=== PATIENT | male | born 1985 | race American Indian/Alaskan Native ===

== ENCOUNTER 2018-06-14 02:03 | Emergency (ER) | payer SELFPAY ==
[2018-06-14 03:33] LABS: Basophils # (Auto) 0.1 K/mm3 (0.0-0.1); Basophils % (Auto) 1.6 % (0.0-1.8); Eosinophils # (Auto) 0.1 K/mm3 (0.0-0.4); Eosinophils % (Auto) 1.3 % (0.0-4.3); Hematocrit 43.8 % (35.5-45.6); Hemoglobin 14.9 gm/dl (11.8-15.2); Lymphocytes # (Auto) 2.1 K/mm3 (1.2-5.4); Mean Corpuscular HGB Conc 34 % (32-34); Mean Corpuscular Hemoglobin 37 pg (28-32); Mean Corpuscular Volume 108 fl (84-94); Monocytes # (Auto) 0.6 K/mm3 (0.0-0.8); Platelet Count 159 K/mm3 (140-440); Red Blood Count 4.06 M/mm3 (3.65-5.03)
[2018-06-14 03:50] LABS: Alanine Aminotransferase 56 units/L (7-56); Albumin 4.4 g/dL (3.9-5); BUN/Creatinine Ratio 8; Blood Urea Nitrogen 5 mg/dL (9-20); Calcium 8.7 mg/dL (8.4-10.2); Hemolysis Index 12
--- NOTE | 2018-06-14 04:10 | Cat Scan Report ---
FINAL REPORT EXAM: CT HEAD/BRAIN WO CON HISTORY: headache TECHNIQUE: CT imaging acquired through the head without intravenous contrast. Transaxial reformations are provided. PRIORS: None. FINDINGS: The ventricles, cisterns and sulci are normal. No intraparenchymal or extra-axial mass, hemorrhage, or mass effect. Gorman and white-matter differentiation is normal. Normal spherical shape of the globes. Paranasal sinuses and mastoid air cells are clear. No skull or facial fracture visualized. IMPRESSION: No acute intracranial abnormality. Consider MRI for worsening/persistent symptoms.
--- NOTE | 2018-06-14 04:57 | Emergency Department Report ---
ED Headache HPI - General Chief Complaint: Headache Stated Complaint: HEADACHE Time Seen by Provider: 06/14/18 04:53 Source: patient - History of Present Illness Initial Comments: Patient is 32 years old male with no significant past medical history except for a fall in [place] when he hit his head. The patient states that since then he's been having some headache. Patient denied any focal weakness. He stated that he has been having some numbness in his leg but this is even before the fall. He added that his uncle and other members of his family have the same symptoms. Patient denied any nausea or vomiting. No neck pain or stiffness. Allergies/Adverse Reactions: Allergies No Known Allergies Allergy (Unverified 05/21/13 15:51) Home Medications: Ambulatory Orders No Known Home Medications [No Reported Home Medications] 05/21/13 ED Review of Systems ROS: Stated complaint: HEADACHE Other details as noted in HPI Comment: All other systems reviewed and negative Constitutional: no symptoms reported. denies: chills, fever ENT: denies: throat pain Respiratory: denies: cough Cardiovascular: denies: chest pain, palpitations Gastrointestinal: denies: abdominal pain, nausea Skin: denies: lesions Neurological: headache, numbness. denies: weakness, paresthesias, confusion, abnormal gait ED Past Medical Hx - Past Medical History Hx Asthma: Yes - Surgical History Past Surgical History?: No - Social History Smoking Status: Current Every Day Smoker Substance Use Type: None - Medications Home Medications: Home Medications Medication Instructions Recorded Confirmed Last Taken Type No Known Home Medications [No 05/21/13 05/21/13 Unknown History Reported Home Medications] ED Physical Exam - General Limitations: No Limitations ED Course Vital Signs 06/14/18 03:11 Temperature 98.5 F Pulse Rate 102 H Respiratory 18 Rate Blood Pressure 126/84 O2 Sat by Pulse 97 Oximetry ED Medical Decision Making - Lab Data Result diagrams: 06/14/18 03:18 06/14/18 03:18 - Radiology Data Referring Physician: ED DOC Patient Name: LAMBERTO LUEVANO Date of : 1985 Sex: Male Report Date: 2018-06-14 Report Status: Finalized Findings [facility] [address] [place] [address] Cat Scan Report Signed Patient: LAMBERTO LUEVANO MR#: [id number] : 1985 Acct:[id number] Age/Sex: 32 / M ADM Date: 06/14/18 Loc: ED Attending Dr: Ordering Physician: SHARON WANG MD Date of Service: 06/14/18 Procedure(s): CT head/brain wo con Accession Number(s): [id number] cc: SHARON WANG MD FINAL REPORT EXAM: CT HEAD/BRAIN WO CON HISTORY: headache TECHNIQUE: CT imaging acquired through the head without intravenous contrast. Transaxial reformations are provided. PRIORS: None. FINDINGS: The ventricles, cisterns and sulci are normal. No intraparenchymal or extra-axial mass, hemorrhage, or mass effect. Gorman and white-matter differentiation is normal. Normal spherical shape of the globes. Paranasal sinuses and mastoid air cells are clear. No skull or facial fracture visualized. IMPRESSION: No acute intracranial abnormality. Consider MRI for worsening/persistent symptoms. Transcribed By: MB Dictated By: NBA STEVE MD Electronically Authenticated By: NBA STEVE MD Signed Date/Time: 06/14/18407 DD/ 7 TD/TT: 06/14/18407 - Medical Decision Making Patient is 32 years old male with no significant past medical history except for a fall in [place] when he hit his head. The patient states that since then he's been having some headache. Patient denied any focal weakness. He stated that he has been having some numbness in his leg but this is even before the fall. He added that his uncle and other members of his family have the same symptoms. Patient denied any nausea or vomiting. No neck pain or stiffness. Patient was syncopal or laboratory evidence of meningitis. ct brain is negative for acute finding. patient labs are negative for acute finding also. i advised patient to follow up with his primary care physician in the next 2-3 days. Critical care attestation.: If time is entered above; I have spent that time in minutes in the direct care of this critically ill patient, excluding procedure time. ED Disposition Clinical Impression: Headache, Peripheral neuropathy Disposition: DC-01 TO HOME OR SELFCARE Is pt being admited?: No Condition: Stable Instructions: Acute Headache (ED), Peripheral Neuropathy (ED) Referrals: PRIMARY CARE, [Primary Care Provider] - 3-5 Days
[2018-06-14 05:12] VITALS: BP 137/58
== END 2018-06-14 05:10 | disposition home or self-care (01) ==
LOC: ED 02:03
DX: G62.9 Polyneuropathy, unspecified (principal); J45.909 Unspecified asthma, uncomplicated; F17.200 Nicotine dependence, unspecified, uncomplicated
CPT/HCPCS: 36415; 70450; 80053; 85025; 99284

== ENCOUNTER 2018-11-26 03:40 | Emergency (ER) | payer OTHER ==
[2018-11-26 04:33] LABS: Basophils % (Auto) 0.5 % (0.0-1.8); Eosinophils # (Auto) 0.1 K/mm3 (0.0-0.4); Eosinophils % (Auto) 0.7 % (0.0-4.3); Hematocrit 44.8 % (35.5-45.6); Hemoglobin 15.7 gm/dl (11.8-15.2); Lymphocytes % (Auto) 47.8 % (13.4-35.0); Mean Corpuscular HGB Conc 35 % (32-34); Mean Corpuscular Volume 102 fl (84-94); Monocytes # (Auto) 0.6 K/mm3 (0.0-0.8); Monocytes % (Auto) 7.3 % (0.0-7.3); Platelet Count 277 K/mm3 (140-440); Red Blood Count 4.38 M/mm3 (3.65-5.03); Red Cell Distribution Width 16.6 % (13.2-15.2)
[2018-11-26] MEDS ORDERED: KEPPRA 1,000 MG/NS 0.75% 100ML 1,000 MG/100 ML BAG IV ONE (04:43)
[2018-11-26 04:52] LABS: BUN/Creatinine Ratio 11; Blood Urea Nitrogen 8 mg/dL (9-20); Calcium 8.7 mg/dL (8.4-10.2); Hemolysis Index 16
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
--- NOTE | 2018-11-26 05:12 | Cat Scan Report ---
PROCEDURE: CT HEAD/BRAIN WO CON TECHNIQUE: CT imaging is obtained through the brain without contrast HISTORY: seizure COMPARISONS: 06/14/2018 FINDINGS: The ventricles, cisterns and sulci are within normal limits. No intra parenchymal or extra-axial mas s, hemorrhage, or mass effect. Gorman and white-matter differentiation is within normal limits. Normal spherical shape of the globes. Paranasal sinuses and mastoid air cells are clear. No skull o r facial fracture visualized. IMPRESSION: No acute intracranial abnormality. Consider follow-up MRI as warranted. This document is electronically signed by Joon Doan MD., November 26 2018 05:08:53 AM ET
[2018-11-26 06:12] VITALS: BP 109/74
== END 2018-11-26 06:10 | disposition home or self-care (01) ==
LOC: ED 03:40
DX: G40.909 Epilepsy, unspecified, not intractable, without status epilepticus (principal); S50.311A Abrasion of right elbow, initial encounter; S60.811A Abrasion of right wrist, initial encounter; S60.512A Abrasion of left hand, initial encounter; S10.91XA Abrasion of unspecified part of neck, initial encounter; J45.909 Unspecified asthma, uncomplicated; F17.200 Nicotine dependence, unspecified, uncomplicated; W10.8XXA Fall (on) (from) other stairs and steps, initial encounter; Y93.89 Activity, other specified; Y92.89 Other specified places as the place of occurrence of the external cause; Y99.8 Other external cause status
CPT/HCPCS: 36415; 70450; 80048; 85025; 96365; 99284; J1953; 96366

== ENCOUNTER 2019-03-03 20:54 | Inpatient (IN) | payer OTHER ==
[2019-03-03 22:54] LABS: Basophils # (Auto) 0.1 K/mm3 (0.0-0.1); Basophils % (Auto) 0.6 % (0.0-1.8); Eosinophils % (Auto) 0.2 % (0.0-4.3); Hematocrit 47.1 % (35.5-45.6); Lymphocytes # (Auto) 1.1 K/mm3 (1.2-5.4); Lymphocytes % (Auto) 10.2 % (13.4-35.0); Mean Corpuscular HGB Conc 34 % (32-34); Mean Corpuscular Volume 102 fl (84-94); Monocytes # (Auto) 1.1 K/mm3 (0.0-0.8); Monocytes % (Auto) 9.6 % (0.0-7.3); Platelet Count 217 K/mm3 (140-440); Red Blood Count 4.61 M/mm3 (3.65-5.03); Red Cell Distribution Width 13.8 % (13.2-15.2)
--- NOTE | 2019-03-03 22:55 | XRay Report ---
PROCEDURE: XR CHEST 1V AP TECHNIQUE: Chest radiograph single view. HISTORY: Chest Pain COMPARISONS: None . FINDINGS: There is no evidence of infiltrate, pneumothorax or pleural fluid collection. The cardiomediastinal silhouette is normal in appearance. The bony structures are notable for mild dextrocurvature of the thoracic spine. IMPRESSION: 1. No evidence of an acute pulmonary process. This document is electronically signed by Mayra Higuera MD., March 03 2019 10:53:43 PM ET
[2019-03-03 23:09] LABS: BUN/Creatinine Ratio 7; Blood Urea Nitrogen 5 mg/dL (9-20); Calcium 9.8 mg/dL (8.4-10.2); Hemolysis Index 9
[2019-03-03] MEDS ORDERED: SUBLIMAZE IV ONE (23:13)
[2019-03-03] MEDS ORDERED: ZOFRAN IV ONE (23:13)
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
[2019-03-03] MEDS ORDERED: NACL 0.9% 1000 ML 1,000 ML IV ONE (23:31)
[2019-03-04 00:17] LABS: Bacteria,Urine 1+ /HPF (Negative); Bilirubin,Urine NEG (Negative); Blood,Urine SM (Negative); Color,Urine Amber (Yellow); Mucus,Urine 3+ /HPF
--- NOTE | 2019-03-04 00:51 | Cat Scan Report ---
PROCEDURE: CT ANGIO CHEST TECHNIQUE: Computerized tomographic angiography of the chest was performed after the IV injection of iodinated nonionic contrast including image processing. The image data was postprocessed using 2-di mensional multiplanar reformatted (MPR) and 3-dimensional (MIP and/or volume rendered) techniques. Au tomated exposure control, adjustment of mA and/or kV according to patient size, or iterative reconstr uction dose optimization techniques were utilized. CT DOSE LENGTH PRODUCT: 1316 mGycm HISTORY: chest pain, tachycardia COMPARISONS: None . FINDINGS: Heart and pericardium: Normal. Thoracic aorta: Normal. Pulmonary vasculature: There is no evidence of pulmonary arterial emboli. Lymph nodes: No enlarged thoracic lymph nodes. Lungs: Normal. Pleural space: No effusion, thickening, or pneumothorax. Musculoskeletal structures: No significant abnormality. Upper abdominal structures: No significant abnormality. IMPRESSION: Normal Examination . This document is electronically signed by Alondra Stallings DO., March 04 2019 12:49:52 AM ET
--- NOTE | 2019-03-04 00:54 | Cat Scan Report ---
PROCEDURE: CT ABDOMEN PELVIS W CON TECHNIQUE: Computerized axial tomography of the abdomen and pelvis was performed after the administr ation of IV iodinated nonionic contrast. HISTORY: left-sided abdominal pain COMPARISONS: None . FINDINGS: Visualized lower thorax: No significant abnormality. Liver: Normal size and attenuation. Spleen: Normal size and attenuation. Gallbladder and biliary system: Normal. Pancreas: Normal. Adrenals: Normal. Kidneys: Normal. GI tract: The stomach is normal. The small bowel has a normal appearance. No evidence of obstruction . Cecum is normal. The appendix is not clearly visualized. Colon is normal.. Lymph nodes and mesentery: Normal. Vasculature: Normal.. Bladder: Normal. Reproductive organs: Normal. Peritoneum: No free fluid. Musculoskeletal structures: No significant abnormality. Other: None. IMPRESSION: There is no evidence of intestinal or urinary tract obstruction. No ileus or enteritis.. This document is electronically signed by Alondra Stallings DO., March 04 2019 12:52:23 AM ET
[2019-03-04] MEDS ORDERED: SODIUM CHLORIDE FLUSH SYRINGE 10 ML IV PRN (02:06)
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
[2019-03-04 02:42] LABS: Amphetamine Screen,Urine PRESUMPTIVE NEGATIVE; Benzodiazepines Screen,Urine PRESUMPTIVE NEGATIVE; Cannabinoid Screen,Urine PRESUMPTIVE NEGATIVE; Cocaine Screen,Urine PRESUMPTIVE NEGATIVE; Methadone Screen,Urine PRESUMPTIVE NEGATIVE; Opiate Screen,Urine PRESUMPTIVE NEGATIVE
[2019-03-04] MEDS ORDERED: PROVENTIL IH PRN (02:59)
[2019-03-04] MEDS: NACL 0.9% 1000 ML 1,000 ML IV SCH ×2 (03:28→16:48)
[2019-03-04 05:01] LABS: Chol/HDL Ratio 2.81 %
--- NOTE | 2019-03-04 07:56 | Event Note ---
Date: 03/04/19 Pt seen and evaluated. Admitted today. will continue with present management plan
[2019-03-04 08:56] LABS: Basophils % (Auto) 0.5 % (0.0-1.8); Eosinophils # (Auto) 0.1 K/mm3 (0.0-0.4); Eosinophils % (Auto) 0.9 % (0.0-4.3); Hematocrit 44.3 % (35.5-45.6); Hemoglobin 15.3 gm/dl (11.8-15.2); Lymphocytes # (Auto) 1.3 K/mm3 (1.2-5.4); Lymphocytes % (Auto) 15.8 % (13.4-35.0); Mean Corpuscular HGB Conc 34 % (32-34); Mean Corpuscular Volume 101 fl (84-94); Monocytes # (Auto) 1.1 K/mm3 (0.0-0.8); Monocytes % (Auto) 13.4 % (0.0-7.3); Platelet Count 181 K/mm3 (140-440); Red Blood Count 4.39 M/mm3 (3.65-5.03); Red Cell Distribution Width 13.8 % (13.2-15.2)
[2019-03-04 09:14] LABS: BUN/Creatinine Ratio 5; Blood Urea Nitrogen 3 mg/dL (9-20); Calcium 8.7 mg/dL (8.4-10.2); Hemolysis Index 9
[2019-03-04] MEDS: KEPPRA 500 MG in D5W 100 ML IV SCH (09:39)
[2019-03-04] MEDS: NITROSTAT SL PRN (10:15)
[2019-03-04] MEDS: MORPHINE IV PRN ×2 (11:53→19:29)
[2019-03-04] MEDS: ZOFRAN IV PRN ×2 (11:53→19:30)
[2019-03-04] MEDS: HEPARIN SUB-Q SCH ×2 (16:47→22:04)
[2019-03-04] MEDS: ROCEPHIN/NS 1 GM/50 ML 1 GM/50 ML BAG IV SCH (16:49)
[2019-03-04] MEDS: SODIUM CHLORIDE FLUSH SYRINGE 10 ML IV SCH ×2 (16:49→22:05)
[2019-03-04] MEDS: TYLENOL PO PRN (22:03)
[2019-03-05] MEDS: NACL 0.9% 1000 ML 1,000 ML IV SCH ×3 (03:17→22:50)
[2019-03-05] MEDS: MORPHINE IV PRN ×3 (04:57→20:29)
[2019-03-05] MEDS: KEPPRA 500 MG in D5W 100 ML IV SCH ×3 (05:01→22:50)
[2019-03-05] MEDS ORDERED: LEXISCAN IV ONE (07:33)
[2019-03-05 07:48] LABS: Basophils % (Auto) 0.4 % (0.0-1.8); Eosinophils # (Auto) 0.1 K/mm3 (0.0-0.4); Eosinophils % (Auto) 1.3 % (0.0-4.3); Hematocrit 40.4 % (35.5-45.6); Hemoglobin 13.9 gm/dl (11.8-15.2); Lymphocytes # (Auto) 1.1 K/mm3 (1.2-5.4); Lymphocytes % (Auto) 16.2 % (13.4-35.0); Mean Corpuscular HGB Conc 34 % (32-34); Mean Corpuscular Volume 102 fl (84-94); Monocytes # (Auto) 0.7 K/mm3 (0.0-0.8); Monocytes % (Auto) 10.6 % (0.0-7.3); Platelet Count 169 K/mm3 (140-440); Red Blood Count 3.97 M/mm3 (3.65-5.03); Red Cell Distribution Width 13.4 % (13.2-15.2)
[2019-03-05 07:55] LABS: BUN/Creatinine Ratio 5; Blood Urea Nitrogen 3 mg/dL (9-20); Calcium 8.2 mg/dL (8.4-10.2); Hemolysis Index 6
--- NOTE | 2019-03-05 08:05 | Progress Note ---
Assessment and Plan 33-year-old -[place] male with ongoing smoker with history of seizure disorder and asthma who presents to [facility] ED with complaints of left-sided chest pain radiating to the left side of neck and mid epigastric/left upper quadrant abdominal pain for the past 2-3 days. CTA negative for PE. CT abdomen did not show any evidence of intestinal or urinary tract obstruction; no ileus or enteritis noted. Lipase elevated at 259. Leukocytosis of 11.1, urine WBC elevated at 13.0, urine was zhang and slightly Cloudy. Will admit to telemetry for further evaluation. Acute pancreatitis UTI Acute chest pain - likely muscular skeletal Leukocytosis Increased lipase History of seizures History of asthma Tobacco abuse Plan: Nothing by mouth, IV hydration IV antibiotics Hydrate with IVF NS @ 100ml/hr IV Keppra 500 mg twice a day Start Rocephin 1g q24hrs Monitor WBC Monitor lipase Stress test (thallium) pending Albuterol when necessary Counseled on smoking cessation done. Pt refused nicotine patch DVT PPX on Heparin Subjective Date of service: 03/05/19 Principal diagnosis: acute appendicitis, UTI, history of seizure Interval history: We have no abdominal pain. No nausea no vomiting. No seizure activities. Objective - Exam Narrative Exam: Constitutional: Well-nourished well-developed. In no distress Head: Normocephalic atraumatic Eyes: Pupils are equal round and reactive to light Nose: No enlarged turbinates, no septal deviation. Mouth: Moist mucous membranes. Neck: Supple no thyromegaly. No bruit. No JVD Heart: Regular rate and rhythm, S1-S2 normal. No rubs murmurs or gallop Lungs: Clear to auscultation bilaterally. no rales or rhonchi Abdomen: Soft, nontender. Bowel sound are present. Extremities: No edema, no cyanosis, no clubbing. Neuro: Alert oriented Oriented x3. No focal sensory or motor deficit. Skin: No rashes or hyperpigmented spots Musculoskeletal system: No joint pain or swelling Hematological: No petechia or subcutanous hemorrhages. Immunological: No multiple septic spots on the skin Lymphatic: No generalized lymphadenopathy Psychiatry: Euthymic. Calm. - Constitutional Vitals: Vital Signs - 12hr 03/04/19 03/04/19 03/04/19 21:30 22:00 22:03 Temperature Pulse Rate 81 Respiratory 20 20 Rate Blood Pressure O2 Sat by Pulse Oximetry 03/04/19 03/04/19 03/05/19 23:03 23:26 04:19 Temperature 98.6 F 98.8 F Pulse Rate 82 81 Respiratory 20 17 18 Rate Blood Pressure 118/69 124/83 O2 Sat by Pulse 98 99 Oximetry 03/05/19 04:57 Temperature Pulse Rate Respiratory 22 Rate Blood Pressure O2 Sat by Pulse Oximetry - Labs CBC & Chem 7: 03/05/19 07:15 03/05/19 07:15 Labs: Abnormal lab results 03/04/19 03/04/19 03/05/19 Range/Units 08:28 08:28 07:15 Hgb 15.3 H (11.8-15.2) gm/dl MCV 101 H 102 H (84-94) fl MCH 35 H 35 H (28-32) pg [place] % (Auto) 13.4 H 10.6 H (0.0-7.3) % Lymph # 1.1 L (1.2-5.4) K/mm3 [place] # 1.1 H (0.0-0.8) K/mm3 Seg Neutrophils % 71.5 H (40.0-70.0) % Potassium (3.6-5.0) mmol/L BUN 3 L (9-20) mg/dL Creatinine 0.6 L (0.8-1.5) mg/dL Calcium (8.4-10.2) mg/dL 03/05/19 Range/Units 07:15 Hgb (11.8-15.2) gm/dl MCV (84-94) fl MCH (28-32) pg [place] % (Auto) (0.0-7.3) % Lymph # (1.2-5.4) K/mm3 [place] # (0.0-0.8) K/mm3 Seg Neutrophils % (40.0-70.0) % Potassium 3.4 L (3.6-5.0) mmol/L BUN 3 L (9-20) mg/dL Creatinine 0.6 L (0.8-1.5) mg/dL Calcium 8.2 L (8.4-10.2) mg/dL
[2019-03-05] MEDS: SODIUM CHLORIDE FLUSH SYRINGE 10 ML IV SCH ×2 (12:46→22:55)
[2019-03-05] MEDS: HEPARIN SUB-Q SCH ×2 (12:52→22:50)
[2019-03-05] MEDS: ROCEPHIN/NS 1 GM/50 ML 1 GM/50 ML BAG IV SCH (12:53)
[2019-03-05] MEDS: KCL 10MEQ/100ML 10 MEQ/100 ML BAG IV SCH ×2 (20:20→22:51)
[2019-03-05] MEDS: NEURONTIN PO SCH (22:50)
--- NOTE | 2019-03-05 23:36 | Treadmill Report ---
STRESS TEST REPORT REASON FOR TEST: Chest pain. The patient exercised for 10 minutes of a Ender protocol, reaching stage 4 and achieving a level 11 mets. Peak heart rate was 197 beats per minute. Peak blood pressure was 147 systolic. There was no angina. Test was stopped for fatigue. Baseline ECG was sinus rhythm. With exercise, there were no ST changes of ischemia. No significant dysrhythmias were noted. CONCLUSION: 1. Very good exercise capacity. 2. No chest pain. 3. No ST changes of ischemia. 4. No significant dysrhythmias. 5. Normal exercise ECG test. JOB# [id number] CA/NTS
[2019-03-06] MEDS: NITROSTAT SL PRN (09:11)
[2019-03-06] MEDS: ROCEPHIN/NS 1 GM/50 ML 1 GM/50 ML BAG IV SCH (09:11)
[2019-03-06] MEDS: NEURONTIN PO SCH ×2 (09:15→21:47)
[2019-03-06] MEDS: SODIUM CHLORIDE FLUSH SYRINGE 10 ML IV SCH ×2 (09:16→21:48)
[2019-03-06] MEDS: HEPARIN SUB-Q SCH ×2 (09:16→21:47)
[2019-03-06] MEDS: KEPPRA 500 MG in D5W 100 ML IV SCH ×3 (10:45→22:18)
[2019-03-06] MEDS: TYLENOL PO PRN (18:14)
--- NOTE | 2019-03-06 19:30 | Progress Note ---
Assessment and Plan Assessment and plan: --Acute pancreatitis; worsening symptoms Worsening pancreatic enzyme levels lipase Clear liquids/nothing by mouth, monitor closely IV antibiotics, consult GI evaluation noted and appreciated Follow Abdominal ultrasound --Possible UTI; empiric antibiotics, follow cultures Supportive care --Acute chest pain probably noncardiac GERD Stress test negative, supportive care Continue current cardiac medications follow clinically --h/o GERD; may be contributing to atypical chest pain continue Protonix, supportive care --Leukocytosis; rule out sepsis --History of seizures; seizure precautions Antiepileptic medications, neurology evaluation if needed --History of asthma ; oxygen titrated HER some more than 90% Nebulizers IV steroids and supportive care --Ongoing Tobacco abuse; smoking cessation counseling done Advised nicotine patch --Chronic alcohol intake; patient strongly advised to quit alcohol intake Seek alcohol rehabilitation/detoxification programs upon discharge GI evaluation and recommendation noted and appreciated History Interval history: Patient seen and examined medical records reviewed No new events reported by nursing Complaints of abdominal pain and mild nausea Place the patient on clear liquids Closely monitor renal function tests as well as lipase Mild nausea no vomiting Complaints of abdominal pain Vital signs noted Hospitalist Physical - Constitutional Vitals: Temp Pulse Resp BP Pulse Ox 98.4 F 76 18 116/78 98 03/06/19 15:34 03/06/19 15:34 03/06/19 15:34 03/06/19 15:34 03/06/19 15:34 General appearance: Present: no acute distress, well-nourished - EENT Eyes: Present: PERRL, EOM intact - Neck Neck: Present: supple, normal ROM - Respiratory Respiratory: bilateral: diminished, rhonchi, wheezing, negative: rales - Cardiovascular Rhythm: regular Heart Sounds: Present: S1 & S2 - Extremities Extremities: no ischemia, No edema - Abdominal General gastrointestinal: soft, non-tender, non-distended, normal bowel sounds - Integumentary Integumentary: Present: clear, warm, erythema - Psychiatric Psychiatric: appropriate mood/affect, cooperative - Neurologic Neurologic: CNII-XII intact, moves all extremities Results - Labs CBC & Chem 7: 03/05/19 07:15 03/05/19 07:15 Labs: Laboratory Last Values WBC 7.0 K/mm3 (4.5-11.0) 03/05/19 07:15 RBC 3.97 M/mm3 (3.65-5.03) 03/05/19 07:15 Hgb 13.9 gm/dl (11.8-15.2) 03/05/19 07:15 Hct 40.4 % (35.5-45.6) 03/05/19 07:15 MCV 102 fl (84-94) H 03/05/19 07:15 MCH 35 pg (28-32) H 03/05/19 07:15 MCHC 34 % (32-34) 03/05/19 07:15 RDW 13.4 % (13.2-15.2) 03/05/19 07:15 Plt Count 169 K/mm3 (140-440) 03/05/19 07:15 Lymph % (Auto) 16.2 % (13.4-35.0) 03/05/19 07:15 [place] % (Auto) 10.6 % (0.0-7.3) H 03/05/19 07:15 Eos % (Auto) 1.3 % (0.0-4.3) 03/05/19 07:15 Baso % (Auto) 0.4 % (0.0-1.8) 03/05/19 07:15 Lymph # 1.1 K/mm3 (1.2-5.4) L 03/05/19 07:15 [place] # 0.7 K/mm3 (0.0-0.8) 03/05/19 07:15 Eos # 0.1 K/mm3 (0.0-0.4) 03/05/19 07:15 Baso # 0.0 K/mm3 (0.0-0.1) 03/05/19 07:15 Seg Neutrophils % 71.5 % (40.0-70.0) H 03/05/19 07:15 Seg Neutrophils # 5.0 K/mm3 (1.8-7.7) 03/05/19 07:15 Sodium 137 mmol/L (137-145) 03/05/19 07:15 Potassium 3.4 mmol/L (3.6-5.0) L 03/05/19 07:15 Chloride 98.9 mmol/L (98-107) 03/05/19 07:15 Carbon Dioxide 26 mmol/L (22-30) 03/05/19 07:15 16 mmol/L 03/05/19 07:15 BUN 3 mg/dL (9-20) L 03/05/19 07:15 0.6 mg/dL (0.8-1.5) L 03/05/19 07:15 Estimated GFR > 60 ml/min 03/05/19 07:15 5 % 03/05/19 07:15 Glucose 92 mg/dL (75-100) 03/05/19 07:15 Calcium 8.2 mg/dL (8.4-10.2) L 03/05/19 07:15 < 0.010 ng/mL (0.00-0.029) 03/04/19 03:38 Triglycerides 71 mg/dL (2-149) 03/04/19 03:38 Cholesterol 93 mg/dL (50-199) 03/04/19 03:38 53 mg/dL (50-130) 03/04/19 03:38 33 mg/dL (40-59) L 03/04/19 03:38 2.81 % 03/04/19 03:38 496 units/L (13-60) H 03/06/19 08:14 Josefina (Yellow) 03/03/19 23:24 Slightly-cloudy (Clear) 03/03/19 23:24 5.0 (5.0-7.0) 03/03/19 23:24 Ur Specific [place] 1.028 (1.003-1.030) 03/03/19 23:24 30 mg/dl mg/dL (Negative) 03/03/19 23:24 Neg mg/dL (Negative) 03/03/19 23:24 20 mg/dL (Negative) 03/03/19 23:24 Sm (Negative) 03/03/19 23:24 Neg (Negative) 03/03/19 23:24 Neg (Negative) 03/03/19 23:24 2.0 mg/dL (<2.0) 03/03/19 23:24 Ur Leukocyte Esterase Tr (Negative) 03/03/19 23:24 13.0 /HPF (0.0-6.0) H 03/03/19 23:24 4.0 /HPF (0.0-6.0) 03/03/19 23:24 U Epithel Cells (Auto) 2.0 /HPF (0-13.0) 03/03/19 23:24 1+ /HPF (Negative) 03/03/19 23:24 3+ /HPF 03/03/19 23:24 Presumptive negative 03/04/19 02:04 Presumptive negative 03/04/19 02:04 Ur Barbiturates Screen Presumptive negative 03/04/19 02:04 Ur Phencyclidine Scrn Presumptive negative 03/04/19 02:04 Ur Amphetamines Screen Presumptive negative 03/04/19 02:04 U Benzodiazepines Scrn Presumptive negative 03/04/19 02:04 Presumptive negative 03/04/19 02:04 U Marijuana (THC) Screen Presumptive negative 03/04/19 02:04 Disclamer 03/04/19 02:04 Active Medications - Current Medications Current Medications: Generic Name Dose Route Start Last Admin Trade Name Freq PRN Reason Stop Dose Admin Acetaminophen 650 mg 03/04/19 02:06 03/06/19 18:14 Tylenol PO 650 mg Q4H PRN Administration Pain MILD(1-3)/Fever >100.5/RODRÍGUEZ Albuterol 2.5 mg 03/04/19 02:59 Proventil IH Q4HRT PRN Shortness Of Breath Gabapentin 300 mg 03/05/19 22:00 03/06/19 09:15 Neurontin PO 300 mg BID LESLIE Administration Heparin Sodium (Porcine) 5,000 unit 03/04/19 10:00 03/06/19 09:16 Heparin SUB-Q 5,000 unit Q12HR LESLIE Administration Sodium Chloride 1,000 mls @ 100 mls/hr 03/04/19 03:00 03/05/19 22:50 Nacl 0.9% 1000 Ml IV 100 mls/hr DIRECT LESLIE Administration Ceftriaxone Sodium 1 gm in 50 mls @ 100 mls/hr 03/04/19 10:00 03/06/19 09:11 Rocephin/Ns 1 Gm/50 Ml IV 100 mls/hr Q24HR LESLIE Administration Protocol Levetiracetam 500 mg/ Dextrose 105 mls @ 400 mls/hr 03/04/19 10:00 03/06/19 10:45 IV 400 mls/hr Q12HR LESLIE Administration Nitroglycerin 0.4 mg 03/04/19 02:07 03/06/19 09:11 Nitrostat SL 0.4 mg Q5M PRN Administration Chest Pain Ondansetron HCl 4 mg 03/04/19 02:06 03/04/19 19:30 Zofran IV 4 mg Q8H PRN Administration Nausea And Vomiting Sodium Chloride 10 ml 03/04/19 10:00 03/06/19 09:16 Sodium Chloride Flush Syringe 10 Ml IV 10 ml BID LESLIE Administration Sodium Chloride 10 ml 03/04/19 02:06 Sodium Chloride Flush Syringe 10 Ml IV PRN PRN LINE FLUSH Nutrition/Malnutrition Assess - Dietary Evaluation Nutrition/Malnutrition Findings: Nutrition Notes Start: 03/05/19 14:30 Freq: Status: Active Protocol: Document 03/05/19 14:30 AYANNA (Rec: 03/05/19 14:37 [facility] SRW- [email or web address]) Nutrition Notes Need for Assessment generated from: Low BMI Initial or Follow up Assessment Other Pertinent Diagnosis Chest pain, acute pancreatitis , UTI Current Diet Cardiac Labs/Tests Lipase 456 Pertinent Medications Reviewed Height 6 ft 3 in Weight 66.4 kg Usual Body Weight 75 kg [place] Body Weight (kg) 89.09 BMI 18.3 Intake Prior to Admission Poor Weight Status Underweight Subjective/Other Information Pt screened for low BMI. 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 Burn Absent Trauma Absent #1 Nutrition Diagnosis Unintended weight loss Etiology acute pancreatitis and inability to tolerate PO As Evidenced by Signs and Symptoms pt with 11.5% wt loss Is patient on ventilator? No Is Patient Ambulatory and/or Out of Bed Yes REE-([facility]-ambulatory/OOB) [ 2203.019 NUTR.MSJOOB] Calculation Used for Recommendations [facility] Additional Notes Pro needs 1.2-1.5g/k-100g /day Fluid needs 1ml/kcal Nutrition Intervention Change Diet Order: Continue current diet order Add Supplement/Snack (indicate name/kcal Ensure Enlive once daily /protein ) Provides kCal: 350 Provides Protein (gm) 20 Goal #1 PO intake of meals plus ONS to meet 90-100% energy and pro needs Goal #2 Wt maintenance and/or gain Anticipated Discharge Needs: Continue ONS 1-2 times daily for wt maintenance Follow-Up By: 03/09/19 Additional Comments F/U: intakes
[2019-03-06] MEDS: NACL 0.9% 1000 ML 1,000 ML IV SCH (21:52)
[2019-03-07] MEDS: TYLENOL PO PRN (00:24)
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
[2019-03-07] MEDS: ROCEPHIN/NS 1 GM/50 ML 1 GM/50 ML BAG IV SCH (11:12)
[2019-03-07] MEDS: KEPPRA 500 MG in D5W 100 ML IV SCH ×2 (11:12→22:45)
[2019-03-07] MEDS: NEURONTIN PO SCH ×2 (11:13→22:45)
[2019-03-07] MEDS: SODIUM CHLORIDE FLUSH SYRINGE 10 ML IV SCH ×2 (11:15→22:46)
[2019-03-07] MEDS: HEPARIN SUB-Q SCH ×2 (11:15→22:46)
[2019-03-07 12:07] LABS: Alanine Aminotransferase 9 units/L (7-56); Albumin 3.1 g/dL (3.9-5)
[2019-03-07 12:15] LABS: Bilirubin,Direct < 0.2 mg/dL (0-0.2)
--- NOTE | 2019-03-07 18:50 | Progress Note ---
Assessment and Plan Assessment and plan: --Acute pancreatitis; worsening lipase levels Symptoms slightly improved, follow abdominal ultrasound GI evaluation and recommendation noted no appreciated Continue clear liquid diet and supportive care --Possible UTI; empiric antibiotics, follow cultures Supportive care --Acute chest pain probably noncardiac GERD Stress test negative, supportive care Continue current cardiac medications follow clinically --h/o GERD; may be contributing to atypical chest pain continue Protonix, supportive care --Leukocytosis; resolved --History of seizures; seizure precautions Antiepileptic medications, neurology evaluation if needed --History of asthma ; oxygen titrated HER some more than 90% Nebulizers IV steroids and supportive care --Ongoing Tobacco abuse; smoking cessation counseling done Advised nicotine patch --Chronic alcohol intake; patient strongly advised to quit alcohol intake Seek alcohol rehabilitation/detoxification programs upon discharge GI evaluation and recommendation noted and appreciated follow abdominal ultrasound Disposition per GI Plan of care reviewed with the patient and his nurse History Interval history: Patient seen and examined medical records reviewed Patient feels better and denies any nausea or vomiting or abdominal pain Lipase levels are worsening, GI evaluation noted and appreciated Patient is alert awake oriented Vital signs noted Hospitalist Physical - Constitutional Vitals: Temp Pulse Resp BP Pulse Ox 98.7 F 81 20 115/81 100 03/07/19 17:10 03/07/19 17:10 03/07/19 17:10 03/07/19 17:10 03/07/19 17:10 General appearance: Present: no acute distress, well-nourished - EENT Eyes: Present: PERRL, EOM intact - Neck Neck: Present: supple, normal ROM - Respiratory Respiratory effort: normal Respiratory: bilateral: diminished, negative: rales, rhonchi, wheezing - Cardiovascular Rhythm: regular Heart Sounds: Present: S1 & S2 - Extremities Extremities: no ischemia, No edema - Abdominal General gastrointestinal: soft, non-tender, non-distended, normal bowel sounds - Integumentary Integumentary: Present: clear, warm - Psychiatric Psychiatric: appropriate mood/affect, cooperative - Neurologic Neurologic: CNII-XII intact, moves all extremities Results - Labs CBC & Chem 7: 03/05/19 07:15 03/05/19 07:15 Labs: Laboratory Last Values WBC 7.0 K/mm3 (4.5-11.0) 03/05/19 07:15 RBC 3.97 M/mm3 (3.65-5.03) 03/05/19 07:15 Hgb 13.9 gm/dl (11.8-15.2) 03/05/19 07:15 Hct 40.4 % (35.5-45.6) 03/05/19 07:15 MCV 102 fl (84-94) H 03/05/19 07:15 MCH 35 pg (28-32) H 03/05/19 07:15 MCHC 34 % (32-34) 03/05/19 07:15 RDW 13.4 % (13.2-15.2) 03/05/19 07:15 Plt Count 169 K/mm3 (140-440) 03/05/19 07:15 Lymph % (Auto) 16.2 % (13.4-35.0) 03/05/19 07:15 [place] % (Auto) 10.6 % (0.0-7.3) H 03/05/19 07:15 Eos % (Auto) 1.3 % (0.0-4.3) 03/05/19 07:15 Baso % (Auto) 0.4 % (0.0-1.8) 03/05/19 07:15 Lymph # 1.1 K/mm3 (1.2-5.4) L 03/05/19 07:15 Keith # 0.7 K/mm3 (0.0-0.8) 03/05/19 07:15 Eos # 0.1 K/mm3 (0.0-0.4) 03/05/19 07:15 Baso # 0.0 K/mm3 (0.0-0.1) 03/05/19 07:15 Seg Neutrophils % 71.5 % (40.0-70.0) H 03/05/19 07:15 Seg Neutrophils # 5.0 K/mm3 (1.8-7.7) 03/05/19 07:15 Sodium 137 mmol/L (137-145) 03/05/19 07:15 Potassium 3.4 mmol/L (3.6-5.0) L 03/05/19 07:15 Chloride 98.9 mmol/L (98-107) 03/05/19 07:15 Carbon Dioxide 26 mmol/L (22-30) 03/05/19 07:15 16 mmol/L 03/05/19 07:15 BUN 3 mg/dL (9-20) L 03/05/19 07:15 0.6 mg/dL (0.8-1.5) L 03/05/19 07:15 Estimated GFR > 60 ml/min 03/05/19 07:15 5 % 03/05/19 07:15 Glucose 92 mg/dL (75-100) 03/05/19 07:15 Calcium 8.2 mg/dL (8.4-10.2) L 03/05/19 07:15 0.40 mg/dL (0.1-1.2) 03/07/19 09:18 < 0.2 mg/dL (0-0.2) 03/07/19 09:18 AST 30 units/L (5-40) 03/07/19 09:18 ALT 9 units/L (7-56) 03/07/19 09:18 96 units/L (35-129) 03/07/19 09:18 < 0.010 ng/mL (0.00-0.029) 03/04/19 03:38 1.10 mg/dL (0.00-1.30) 03/07/19 09:18 6.9 g/dL (6.3-8.2) 03/07/19 09:18 3.1 g/dL (3.9-5) L 03/07/19 09:18 0.8 % 03/07/19 09:18 Triglycerides 71 mg/dL (2-149) 03/04/19 03:38 Cholesterol 93 mg/dL (50-199) 03/04/19 03:38 53 mg/dL (50-130) 03/04/19 03:38 33 mg/dL (40-59) L 03/04/19 03:38 2.81 % 03/04/19 03:38 712 units/L (13-60) H 03/07/19 09:18 Josefina (Yellow) 03/03/19 23:24 Slightly-cloudy (Clear) 03/03/19 23:24 5.0 (5.0-7.0) 03/03/19 23:24 Ur Specific [place] 1.028 (1.003-1.030) 03/03/19 23:24 30 mg/dl mg/dL (Negative) 03/03/19 23:24 Neg mg/dL (Negative) 03/03/19 23:24 20 mg/dL (Negative) 03/03/19 23:24 Sm (Negative) 03/03/19 23:24 Neg (Negative) 03/03/19 23:24 Neg (Negative) 03/03/19 23:24 2.0 mg/dL (<2.0) 03/03/19 23:24 Ur Leukocyte Esterase Tr (Negative) 03/03/19 23:24 13.0 /HPF (0.0-6.0) H 03/03/19 23:24 4.0 /HPF (0.0-6.0) 03/03/19 23:24 U Epithel Cells (Auto) 2.0 /HPF (0-13.0) 03/03/19 23:24 1+ /HPF (Negative) 03/03/19 23:24 3+ /HPF 03/03/19 23:24 Presumptive negative 03/04/19 02:04 Presumptive negative 03/04/19 02:04 Ur Barbiturates Screen Presumptive negative 03/04/19 02:04 Ur Phencyclidine Scrn Presumptive negative 03/04/19 02:04 Ur Amphetamines Screen Presumptive negative 03/04/19 02:04 U Benzodiazepines Scrn Presumptive negative 03/04/19 02:04 Presumptive negative 03/04/19 02:04 U Marijuana (THC) Screen Presumptive negative 03/04/19 02:04 Disclamer 03/04/19 02:04 Active Medications - Current Medications Current Medications: Generic Name Dose Route Start Last Admin Trade Name Freq PRN Reason Stop Dose Admin Acetaminophen 650 mg 03/04/19 02:06 03/07/19 00:24 Tylenol PO 650 mg Q4H PRN Administration Pain MILD(1-3)/Fever >100.5/RODRÍGUEZ Albuterol 2.5 mg 03/04/19 02:59 Proventil IH Q4HRT PRN Shortness Of Breath Gabapentin 300 mg 03/05/19 22:00 03/07/19 11:13 Neurontin PO 300 mg BID LESLIE Administration Heparin Sodium (Porcine) 5,000 unit 03/04/19 10:00 03/07/19 11:15 Heparin SUB-Q Not Given Q12HR [facility] Sodium Chloride 1,000 mls @ 100 mls/hr 03/04/19 03:00 03/06/19 21:52 Nacl 0.9% 1000 Ml IV 100 mls/hr DIRECT LESLIE Administration Ceftriaxone Sodium 1 gm in 50 mls @ 100 mls/hr 03/04/19 10:00 03/07/19 11:12 Rocephin/Ns 1 Gm/50 Ml IV 100 mls/hr Q24HR LESLIE Administration Protocol Levetiracetam 500 mg/ Dextrose 105 mls @ 400 mls/hr 03/04/19 10:00 03/07/19 11:12 IV 03/07/19 23:59 400 mls/hr Q12HR LESLIE Administration Levetiracetam 500 mg 03/08/19 10:00 Keppra PO BID LESLIE Nitroglycerin 0.4 mg 03/04/19 02:07 03/06/19 09:11 Nitrostat SL 0.4 mg Q5M PRN Administration Chest Pain Ondansetron HCl 4 mg 03/04/19 02:06 03/04/19 19:30 Zofran IV 4 mg Q8H PRN Administration Nausea And Vomiting Sodium Chloride 10 ml 03/04/19 10:00 03/07/19 11:15 Sodium Chloride Flush Syringe 10 Ml IV 10 ml BID LESLIE Administration Sodium Chloride 10 ml 03/04/19 02:06 Sodium Chloride Flush Syringe 10 Ml IV PRN PRN LINE FLUSH Nutrition/Malnutrition Assess - Dietary Evaluation Nutrition/Malnutrition Findings: Nutrition Notes Start: 03/05/19 14:30 Freq: Status: Active Protocol: Document 03/05/19 14:30 AYANNA (Rec: 03/05/19 14:37 AYANNA SRW- [email or web address]) Nutrition Notes Need for Assessment generated from: Low BMI Initial or Follow up Assessment Other Pertinent Diagnosis Chest pain, acute pancreatitis , UTI Current Diet Cardiac Labs/Tests Lipase 456 Pertinent Medications Reviewed Height 6 ft 3 in Weight 66.4 kg Usual Body Weight 75 kg [place] Body Weight (kg) 89.09 BMI 18.3 Intake Prior to Admission Poor Weight Status Underweight Subjective/Other Information Pt screened for low BMI. 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 No Is Patient Ambulatory and/or Out of Bed Yes REE-([facility] [place]amb[place]OOB) [ 2203.019 NUTR.MSJOOB] Calculation Used for Recommendations [facility] Additional Notes Pro needs 1.2-1.5g/k-100g /day Fluid needs 1ml/kcal Nutrition Intervention Change Diet Order: Continue current diet order Add Supplement/Snack (indicate name/kcal Ensure Enlive once daily /protein ) Provides kCal: 350 Provides Protein (gm) 20 Goal #1 PO intake of meals plus ONS to meet 90-100% energy and pro needs Goal #2 Wt maintenance and/or gain Anticipated Discharge Needs: Continue ONS 1-2 times daily for wt maintenance Follow-Up By: 03/09/19 Additional Comments F/U: intakes
--- NOTE | 2019-03-08 08:10 | Ultrasound Report ---
PROCEDURE: US ABDOMEN COMPLETE TECHNIQUE: Transabdominal grayscale and color Doppler ultrasound evaluation of the abdomen HISTORY: acute pancreatitis COMPARISONS: CT 03/04/2019 FINDINGS: Liver is normal in size and contour. Hepatic parenchymal echogenicity is within normal limits. No p arenchymal lesion identified. Anterior echogenicity is consistent with focal fatty infiltration/atele ctasis associated with the falciform ligament. No intra or extra hepatic biliary ductal dilatation. The common duct measures approximately 4 millimeters in caliber. Gallbladder size is within normal limits No cholelithiasis. Gallbladder wall measures approximately 3-4 millimeters in thickness. Imaged portion of the pancreatic head is sonographically unremarkable. The remainder of the pancreas is not well seen secondary to overlying bowel gas. The spleen is sonographically unremarkable and me asures up to 9 6 with a minimally extends. Imaged portions of the aorta and inferior vena cava are un remarkable. Small volume of abdominal ascites extending into Bar's pouch. The right kidney measures up to 1 3 cm in the left kidney measures 11 cm in length. Kidneys are without hydronephrosis or echogenic sha dowing foci to suggest nephrolithiasis. A couple of simple cysts are present in the upper pole of the left kidney measuring up to 2 cm. IMPRESSION: No cholelithiasis. Small volume of ascites. Additional nonsequela of pancreatitis are not well visualized sonographically. This document is electronically signed by Joon Doan MD., March 08 2019 08:08:14 AM ET
[2019-03-08] MEDS ORDERED: KEPPRA PO SCH (10:00)
[2019-03-08] MEDS: ROCEPHIN/NS 1 GM/50 ML 1 GM/50 ML BAG IV SCH (10:48)
[2019-03-08] MEDS: HEPARIN SUB-Q SCH (10:48)
[2019-03-08] MEDS: NEURONTIN PO SCH (10:48)
[2019-03-08] MEDS: SODIUM CHLORIDE FLUSH SYRINGE 10 ML IV SCH (10:49)
[2019-03-08 11:41] LABS: Alanine Aminotransferase 10 units/L (7-56); Albumin 3.4 g/dL (3.9-5); BUN/Creatinine Ratio 4; Blood Urea Nitrogen 3 mg/dL (9-20); Calcium 8.8 mg/dL (8.4-10.2); Hemolysis Index 7
--- NOTE | 2019-03-08 13:10 | Discharge Summary ---
Providers - Providers Date of Admission: 03/04/19 02:06 Date of discharge: 03/08/19 Attending physician: ISRA BECERRA 03/07/19 08:38 Consult to Physician [CONS] Routine Comment: Consulting Provider: BERLIN BHAKTA Physician Instructions: Reason For Exam: Acute pancreatitis [facility] Reason for admission: atypical chest pain/abdominal pain Condition: Fair Pertinent studies: Chest x-ray CTA chest CT abdomen and pelvis Ultrasound abdomen Exercise stress test Echocardiogram Hospital course: 33-year-old -Greek male with ongoing smoker with history of seizure disorder and asthma was admitted to the emergency room with complaints of chest pain and abdominal pain for the past 2-3 days. Patient was initially evaluated in the ED and admitted to the hospital Had extensive workup, evaluation by GI, symptomatically managed, patient also underwent stress test which was negative for reversible ischemia and normal LV function Chest pain probably noncardiac secondary to GERD, managed with Protonix. Patient had acute pancreatitis with worsening lipase However clinically the patient was stable without any symptoms, tolerating starting with clear liquids advance diet to soft diet Cardiology and GI cleared for discharge, and follow-up as outpatient per schedule Patient is stable at discharge Discharge Diagnosis: and management: --Acute pancreatitis; worsening lipase levels Symptoms slightly improved, follow abdominal ultrasound GI evaluation and recommendation noted no appreciated Continue clear liquid diet and supportive care --Possible UTI; empiric antibiotics, follow cultures Supportive care --Acute chest pain probably noncardiac GERD Stress test negative, supportive care Continue current cardiac medications follow clinically --h/o GERD; may be contributing to atypical chest pain continue Protonix, supportive care --Leukocytosis; resolved --History of seizures; seizure precautions Antiepileptic medications, neurology evaluation if needed --History of asthma ; oxygen titrated HER some more than 90% Nebulizers IV steroids and supportive care --Ongoing Tobacco abuse; smoking cessation counseling done Advised nicotine patch --Chronic alcohol intake; patient strongly advised to quit alcohol intake Seek alcohol rehabilitation/detoxification programs upon discharge GI evaluation and recommendation noted and appreciated GI cleared for discharge and follow-up outpatient Disposition: DC-01 TO HOME OR SELFCARE Time spent for discharge: 32 min Core Measure Documentation - Palliative Care Palliative Care/ Comfort Measures: Not Applicable - Core Measures Any of the following diagnoses?: none Exam - Constitutional Vitals: Temp Pulse Resp BP Pulse Ox 98.2 F 106 H 16 107/69 99 03/08/19 05:57 06/27/19 05:57 03/08/19 05:57 03/08/19 05:57 03/08/19 05:57 General appearance: Present: no acute distress, well-nourished - EENT Eyes: Present: PERRL, EOM intact - Neck Neck: Present: supple, normal ROM - Respiratory Respiratory effort: normal Respiratory: bilateral: diminished, negative: rales, rhonchi, wheezing - Cardiovascular Rhythm: regular Heart Sounds: Present: S1 & S2 - Extremities Extremities: no ischemia, No edema - Abdominal General gastrointestinal: Present: soft, non-tender, non-distended, normal bowel sounds - Integumentary Integumentary: Present: clear, warm - Musculoskeletal Musculoskeletal: strength equal bilaterally - Psychiatric Psychiatric: appropriate mood/affect, memory intact - Neurologic Neurologic: moves all extremities Plan Activity: no restrictions Diet: advance as tolerated Special Instructions: smoking cessation Additional Instructions: Advance diet as tolerated. Smoking cessation advised. advised to quit alcohol intake. If you have intractable nausea and vomiting and abdominal pain. Contact M.D. or go to emergency room Follow up with: REBECA RAZO MD [Primary Care Provider] - 3-5 Days BERLIN BHAKTA MD [Staff Physician] - 7 Days Prescriptions: levETIRAcetam [Keppra] 500 mg PO BID #60 oral.liqd Gabapentin [Neurontin] 300 mg PO BID #20 cap Ondansetron [Zofran Odt] 4 mg PO Q8HR #15 tab.jalyn
--- NOTE | 2019-03-08 13:40 | Gastroenterology Progress Note ---
Assessment and Plan 1.acute pancreatitis -afebrile -WBC trended down to WNL (7) -H/H WNL-no signs of bleeding -triglyceride level 71 -lipase trending down -LFTs and CRP WNL -abdominal CT unremarkable (pancreas normal) -abd U/S- small volume ascites 2/2 pancreatitis- no gallstones or biliary ductal dilatation -etiology-most likely 2/2 ETOH given history -clinically, patient is stable. Denies abd pain or N/V. Tolerating clears. -start on GI soft diet- advanced as tolerated -continue supportive care (IVF, pain medications, antiemetics, empiric antibiotics, etc.) -alcohol cessation discussed/encouraged with patient -if tolerates advanced diet, okay to be d/c per GI standpoint with f/u in clinic -will sign off, please call if needed Subjective Date of service: 03/08/19 Principal diagnosis: acute pancreatitis Interval history: Patient resting in bed w/o acute distress. Reports feeling better with abd pain and N/V resolved. Tolerating clears. Objective - Constitutional Vitals: Temp Pulse Resp BP Pulse Ox 98.2 F 106 H 16 107/69 99 03/08/19 05:57 03/08/19 05:57 03/08/19 05:57 03/08/19 05:57 03/08/19 05:57 General appearance: no acute distress - Respiratory Respiratory effort: normal - Cardiovascular Rhythm: regular - Gastrointestinal General gastrointestinal: Present: soft, non-tender, non-distended, normal bowel sounds - Neurologic Neurological: alert and oriented x3 - Labs CBC & Chem 7: 03/05/19 07:15 03/08/19 09:05 Labs: Laboratory Results - last 24 hr 03/08/19 03/08/19 09:05 10:09 Sodium 139 Potassium 3.2 L Chloride 98.9 Carbon Dioxide 23 Anion Gap 20 BUN 3 L Creatinine 0.7 L Estimated GFR > 60 BUN/Creatinine Ratio 4 Glucose 148 H Calcium 8.8 Total Bilirubin 0.60 AST 28 ALT 10 Alkaline Phosphatase 101 C-Reactive Protein 0.80 Total Protein 7.2 Albumin 3.4 L Albumin/Globulin Ratio 0.9 Lipase 559 H
[2019-03-08 14:38] VITALS: BP 106/73
== END 2019-03-08 15:30 | disposition home or self-care (01) | DRG 391 ==
LOC: ED 20:54 → 4A 03-04 02:06 → 3A 03-07 08:16
PROVIDERS: ADMIT Internal Medicine; ATTEND Internal Medicine
DX: K21.9 Gastro-esophageal reflux disease without esophagitis (principal); K85.20 Alcohol induced acute pancreatitis without necrosis or infection; N39.0 Urinary tract infection, site not specified; G40.909 Epilepsy, unspecified, not intractable, without status epilepticus; F17.210 Nicotine dependence, cigarettes, uncomplicated; J45.909 Unspecified asthma, uncomplicated; Z71.6 Tobacco abuse counseling
CPT/HCPCS: 36415; 71045; 71275; 74177; 76700; 80048; 80053; 80061; 80076; 80307; 81001; 83690; 84484; 85025; 86140; 87086; 93005; 93010; 93017; 93306; 99406; G0378; J0696; J1644; J1953; J2270; J2405; J2785; J3010; J3480; J7030; Q9967

== ENCOUNTER 2019-05-14 02:09 | Emergency (ER) | payer SELFPAY ==
--- NOTE | 2019-05-14 02:57 | XRay Report ---
CHEST 2 VIEWS INDICATION / CLINICAL INFORMATION: chest pain, NANDINI. COMPARISON: Chest x-ray 03/03/2019 FINDINGS: SUPPORT DEVICES: None. HEART / MEDIASTINUM: No significant abnormality. LUNGS / PLEURA: No significant pulmonary or pleural abnormality. No pneumothorax. ADDITIONAL FINDINGS: No significant additional findings. IMPRESSION: 1. No acute findings. Signer Name: Micheal Mcwilliams MD Signed: 05/14/2019 2:53 AM Workstation Name: [id number]
[2019-05-14] MEDS ORDERED: ZOFRAN IV ONE (03:07)
[2019-05-14] MEDS ORDERED: PEPCID IV ONE (03:07)
[2019-05-14] MEDS ORDERED: ALUM-MAG HYDROX-SIMETH 200-200-20MG/5ML PO ONE (03:07)
[2019-05-14] MEDS ORDERED: LIDOCAINE VISCOUS 2% PO ONE (03:07)
[2019-05-14 03:33] LABS: Basophils % (Auto) 0.3 % (0.0-1.8); Eosinophils # (Auto) 0.1 K/mm3 (0.0-0.4); Eosinophils % (Auto) 0.9 % (0.0-4.3); Hematocrit 41.9 % (35.5-45.6); Hemoglobin 14.4 gm/dl (11.8-15.2); Lymphocytes # (Auto) 0.9 K/mm3 (1.2-5.4); Lymphocytes % (Auto) 15.7 % (13.4-35.0); Mean Corpuscular HGB Conc 34 % (32-34); Mean Corpuscular Volume 95 fl (84-94); Monocytes # (Auto) 0.7 K/mm3 (0.0-0.8); Monocytes % (Auto) 11.2 % (0.0-7.3); Platelet Count 148 K/mm3 (140-440); Red Blood Count 4.41 M/mm3 (3.65-5.03); Red Cell Distribution Width 13.8 % (13.2-15.2)
[2019-05-14 03:57] LABS: Alanine Aminotransferase 18 units/L (7-56); BUN/Creatinine Ratio 14; Blood Urea Nitrogen 10 mg/dL (9-20); Calcium 9.4 mg/dL (8.4-10.2); Hemolysis Index 8
[2019-05-14 04:56] LABS: Bilirubin,Urine NEG (Negative); Blood,Urine NEG (Negative); Color,Urine Yellow (Yellow); Mucus,Urine 2+ /HPF; Urobilinogen,Urine < 2.0 mg/dL (<2.0)
[2019-05-14 04:58] LABS: Amphetamine Screen,Urine PRESUMPTIVE NEGATIVE; Benzodiazepines Screen,Urine PRESUMPTIVE NEGATIVE; Cannabinoid Screen,Urine PRESUMPTIVE NEGATIVE; Cocaine Screen,Urine PRESUMPTIVE NEGATIVE; Methadone Screen,Urine PRESUMPTIVE NEGATIVE; Opiate Screen,Urine PRESUMPTIVE NEGATIVE
[2019-05-14] MEDS ORDERED: TORADOL IV ONE (04:58)
[2019-05-14] MEDS ORDERED: ROCEPHIN/NS 1 GM/50 ML 1 GM/50 ML BAG IV ONE (04:58)
--- NOTE | 2019-05-14 05:41 | Ultrasound Report ---
ULTRASOUND ABDOMEN, LIMITED (RIGHT UPPER QUADRANT) INDICATION: Epigastric, RUQ pain. COMPARISON: None available. FINDINGS: Pancreas: Visualized portion shows no significant abnormality. Liver: Increased echotexture characteristic for steatosis 17.9 cm in length Gallbladder: Normal. Bile ducts: Normal. Common Bile Duct measures 3 mm. Free fluid: None. Additional Findings: None. IMPRESSION: 1. Hepatic steatosis. 2. Otherwise negative gallbladder ultrasound. Signer Name: Micheal Mcwilliams MD Signed: 05/14/2019 5:37 AM Workstation Name: [id number]
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
[2019-05-14 07:16] VITALS: BP 108/68
== END 2019-05-14 07:15 | disposition home or self-care (01) ==
LOC: ED 02:09
DX: S29.011A Strain of muscle and tendon of front wall of thorax, initial encounter (principal); K21.9 Gastro-esophageal reflux disease without esophagitis; K29.00 Acute gastritis without bleeding; N39.0 Urinary tract infection, site not specified; J45.909 Unspecified asthma, uncomplicated; F17.200 Nicotine dependence, unspecified, uncomplicated; X58.XXXA Exposure to other specified factors, initial encounter; Y93.89 Activity, other specified; Y92.89 Other specified places as the place of occurrence of the external cause; Y99.8 Other external cause status
CPT/HCPCS: 36415; 71046; 76705; 80053; 80307; 81001; 83690; 84484; 85025; 87086; 93005; 93010; 96365; 96375; 99284; J0696; J1885; J2405